=== PATIENT | female | born 1975 | race Caucasian/White ===

== ENCOUNTER 2017-08-23 10:37 | Emergency (ER) | payer BC ==
[2017-08-23] MEDS ORDERED: Acetaminophen 325 MG/10.15 ML UDCUP ONE (11:07)
[2017-08-23 11:22] LABS: Lactic Acid - Sepsis 1.5 mmol/L (0.5-2.2)
[2017-08-23 11:22] LABS: #Eosinphils 0.1 thou/uL (0.0-0.7); #Lymphocytes 1.6 thou/uL (1.20-3.40); #Monocytes 0.6 thou/uL (0.11-0.59); #Neutrophils 4.5 thou/uL (1.40-6.50); %Basophils 0.4 % (0.0-1.0); %Lymphocytes 23.5 % (21.0-51.0); %Monocytes 8.3 % (0.0-10.0); Hematocrit 41.9 % (36.0-47.0); Mean Platelet Volume 7.8 fL (7.4-10.4); Red Blood Cell (RBC) Count 4.83 mill/uL (4.20-5.40); White Blood Cell (WBC) Count 6.8 thou/uL (4.8-10.8)
[2017-08-23 11:27] LABS: ALT (SGPT) 51 U/L (8-55); AST (SGOT) 26 U/L (5-34); Alkaline Phosphatase 107 U/L (40-150); Anion Gap 16 mmol/L (10-20); BUN (Urea Nitrogen) 8 mg/dL (7.0-18.7); Bilirubin, Total 0.4 mg/dL (0.2-1.2); CK (CPK) 74 U/L (29-168); Calc. Creatinine Clearance 0 mL/min (70-130); Calcium 10.1 mg/dL (7.8-10.44); Carbon Dioxide 24 mmol/L (22-29); Chloride 105 mmol/L (98-107); Estimated GFR-MDRD 86; Globulin 3.7 g/dL (2.4-3.5); Protein, Total 8.1 g/dL (6.0-8.3)
[2017-08-23 11:31] LABS: Troponin I Less than 0.010 ng/mL (< 0.028)
[2017-08-23] MEDS ORDERED: Benzonatate 100 MG CAP ONE (11:47)
--- NOTE | 2017-08-23 11:58 | RAD ---
TWO VIEW CHEST: HISTORY: Congestion. COMPARISON: 12/02/13. FINDINGS: Lungs are well aerated and clear. Heart and mediastinum unremarkable. Transvenous AICD leads again noted. IMPRESSION: No acute lung process identified. POS: [facility]
[2017-08-23] MEDS ORDERED: Ketorolac Tromethamine 30 MG/ML VIAL ONE (13:09)
== END 2017-08-23 13:45 | disposition home or self-care (01) ==
LOC: ERS 10:37
DX: J01.90 Acute sinusitis, unspecified (principal); B96.89 Other specified bacterial agents as the cause of diseases classified elsewhere; I25.10 Atherosclerotic heart disease of native coronary artery without angina pectoris; Z85.43 Personal history of malignant neoplasm of ovary; Z86.73 Personal history of transient ischemic attack (TIA), and cerebral infarction without residual deficits
CPT/HCPCS: 36415; 71020; 80053; 82553; 83605; 84484; 85025; 87081; 87430; 96361; 96374; J1885

== ENCOUNTER 2017-09-04 22:48 | Emergency (ER) | payer BC ==
[2017-09-05] MEDS ORDERED: Ketorolac Tromethamine 30 MG/ML VIAL ONE (02:19)
--- NOTE | 2017-09-05 08:04 | RAD ---
TWO VIEWS CHEST: 09/05/2017 PROVIDED CLINICAL HISTORY: Cough. COMPARISON: 08/23/2017 FINDINGS: Cardiac and mediastinal silhouette are unchanged in appearance. No focal consolidation, pleural flui d, or pneumothorax apparent. IMPRESSION: No evidence for an acute cardiopulmonary process. POS: [facility]
== END 2017-09-05 02:30 | disposition home or self-care (01) ==
LOC: ERS 22:48
DX: R05 Cough (principal); R07.81 Pleurodynia; I25.10 Atherosclerotic heart disease of native coronary artery without angina pectoris; G40.909 Epilepsy, unspecified, not intractable, without status epilepticus; Z79.899 Other long term (current) drug therapy
CPT/HCPCS: 71020; 96372; J1885

== ENCOUNTER 2020-03-26 14:43 | Emergency (ER) | payer MEDICAID, SELFPAY ==
--- NOTE | 2020-03-26 15:31 | RAD ---
XR Elbow Rt 4 View STANDARD History: Elbow pain Comparison: None. Findings: Mild enthesopathic change along the common extensor and flexor tendons, greater on the late ral margin of the elbow. No acute fracture or malalignment. No significant joint effusion. Impression: Chronic medial and lateral epicondylitis.
[2020-03-26] MEDS ORDERED: Ketorolac Tromethamine 30 MG/ML VIAL ONE (16:20)
== END 2020-03-26 16:25 | disposition short-term general hospital (02) ==
LOC: ERS 14:43
DX: M77.11 Lateral epicondylitis, right elbow (principal); I25.10 Atherosclerotic heart disease of native coronary artery without angina pectoris; G40.909 Epilepsy, unspecified, not intractable, without status epilepticus; Z86.73 Personal history of transient ischemic attack (TIA), and cerebral infarction without residual deficits
CPT/HCPCS: 96372; J1885

== ENCOUNTER 2020-05-13 05:46 | Day surgery (SDC) | payer MEDICARE ==
[2020-05-12 11:03] VITALS: BMI 35.2
[2020-05-13] MEDS ORDERED: Fentanyl 100 MCG/2 ML VIAL ONE (06:49)
[2020-05-13] MEDS ORDERED: Ketamine 50 MG/ML (10ML VIAL) ONE (07:38)
[2020-05-13] MEDS ORDERED: Midazolam HCl 2 mg/2 ml Vial ONE (07:38)
[2020-05-13] MEDS ORDERED: PROPOFOL 200 MG/20 ML VIAL ONE (10:49)
--- NOTE | 2020-05-13 11:32 | OP ---
DATE OF PROCEDURE: 05/13/2020 PROCEDURES PERFORMED: 1. Esophagogastroduodenoscopy with biopsy. 2. Colonoscopy with biopsy and polypectomy. INDICATIONS FOR PROCEDURE: Epigastric/generalized abdominal pain, GERD, irregular bowel habits, diarrhea. DESCRIPTION OF PROCEDURE: After the risks and benefits of the procedures were explained to the patient including risks of bleeding, infection, perforation, reactions to anesthesia, aspiration, and/or pain, informed consent was obtained. The patient was then taken to the endoscopy suite where she was maneuvered into the left lateral decubitus position, followed by introduction of deep sedation via ketamine and anesthesia support. Once adequate sedation was achieved, the standard gastroscope was introduced into the mouth with intubation of the esophagus, stomach, and the proximal small intestines with the findings listed below. After completion of this portion of the procedure, all equipment was removed from the patient and the bed was rotated 180 degrees in anticipation of the colonoscopy. After performing a digital rectal exam, a standard colonoscope was then introduced into the rectum and advanced to the cecum with some difficulty due to tortuosity/redundancy of the colon, requiring manual abdominal pressure to facilitate passage of the scope. The quality of the prep was initially fair with retained solid stool seen throughout the colon, but converted to a good prep with irrigation and suctioning. The patient tolerated the procedure well with no immediate perioperative complications. On conclusion of the procedure, all equipment was removed from the patient and she was transferred to Day Stay/PACU in satisfactory condition. EGD FINDINGS: Esophagus: Normal-appearing mucosa was seen in the proximal and mid esophagus; however, at the gastroesophageal junction, 3 to 4 small erosions were seen extending proximally from the GE junction. These erosions extended less than 5 mm in size and were not confluent between folds of the esophagus. No bleeding was associated with these erosions as well. Otherwise, there was no evidence of ulcerations, mass lesions, or active/recent bleeding. Stomach: Normal-appearing mucosa was seen in the gastric cardia, fundus, body, greater curvature, and incisura; however, in the antrum, 4 to 5 small petechiae-appearing clots were seen, that with the irrigation of these clots did not show any significant underlying abnormalities. Otherwise, there was no evidence of erosions, ulcerations, mass lesions, or active/recent bleeding. Random gastric biopsies were then taken for evaluation of possible H pylori. Duodenum: Normal-appearing mucosa was seen in both the duodenal bulb and second portion of the duodenum. There was no evidence of erosions, ulcerations, mass lesions, or active/recent bleeding. Random biopsies were then taken from both the duodenal bulb and second portion of the duodenum for evaluation of possible celiac sprue. IMPRESSION: 1. LA grade A reflux-mediated erosive esophagitis. 2. Small petechiae-appearing clots without underlying abnormalities in the gastric antrum, consistent with nonsteroidal anti-inflammatory drugs gastritis. COLONOSCOPY FINDINGS: Digital rectal exam: Normal findings were seen on external examination with normal sphincter tone. Colon findings: A small to moderate amount of retained solid and liquid stool was seen throughout the entire colon and was initially characterized as a fair prep; however, with aggressive irrigation and suctioning, this was able to be converted to a good prep with adequate visualization of the colonic mucosa achieved. Of the mucosa seen, normal-appearing mucosa was seen in the cecum as well as at the appendiceal orifice and ileocecal valve. The terminal ileum was not able to be intubated due to tortuosity of the colon; however, normal-appearing mucosa was then seen in the ascending colon, transverse colon, and sigmoid colons. Random colon biopsies were taken throughout the entire colon for evaluation of possible microscopic colitis. Three polyps, measuring 3 to 4 mm in size, were seen in the rectum and completely removed with cold snare polypectomy. However, only one of these polyps was able to be retrieved. No abnormalities were seen on rectal retroflexion. IMPRESSION: 1. Three 3- to 4-mm rectal polyps status post cold snare polypectomy, although they were completely resected. Only one polyp was able to be retrieved. 2. Otherwise normal colonoscopy. RECOMMENDATIONS: 1. Would follow up on the biopsy results with repeat EGD and colonoscopy determined by pathology report. However, given that 2 polyps were un-retrieved during the colonoscopy, I would recommend a repeat colonoscopy in 5 years (would assume that the other 2 polyps were adenomatous in nature). 2. Would continue current diet. 3. Continue current medications, but we will consider decreasing NSAID use. 4. Would start the patient on omeprazole 40 mg daily 30 to 45 minutes before dinner for acid reflux. 5. Would recommend a higher fiber/FODMAP diet given irregular bowel habits. 6. We will follow up in the [facility] in 3 weeks for further management and evaluation. Job ID: [id number]
== END 2020-05-13 10:28 | disposition home or self-care (01) ==
LOC: SDC 05:46
PROVIDERS: ATTEND Internal Medicine
PROC: 0DB98ZX Excision of Duodenum, Via Natural or Artificial Opening Endoscopic, Diagnostic (ICD-10-PCS; principal; 2020-05-13)
PROC: 0DB68ZX Excision of Stomach, Via Natural or Artificial Opening Endoscopic, Diagnostic (ICD-10-PCS; 2020-05-13)
PROC: 0DBE8ZX Excision of Large Intestine, Via Natural or Artificial Opening Endoscopic, Diagnostic (ICD-10-PCS; 2020-05-13)
PROC: 0DBP8ZX Excision of Rectum, Via Natural or Artificial Opening Endoscopic, Diagnostic (ICD-10-PCS; 2020-05-13)
DX: K62.1 Rectal polyp (principal); K22.10 Ulcer of esophagus without bleeding; K21.0 Gastro-esophageal reflux disease with esophagitis; F41.9 Anxiety disorder, unspecified; I42.9 Cardiomyopathy, unspecified; G89.29 Other chronic pain; M54.9 Dorsalgia, unspecified; E66.9 Obesity, unspecified; Z68.35 Body mass index [BMI] 35.0-35.9, adult; Z87.891 Personal history of nicotine dependence; Z79.82 Long term (current) use of aspirin; Z79.899 Other long term (current) drug therapy; Z88.0 Allergy status to penicillin; Z88.8 Allergy status to other drugs, medicaments and biological substances; Z95.810 Presence of automatic (implantable) cardiac defibrillator
CPT/HCPCS: 88305; 88312; 93005; 93010; J2250; J2704; J3010

== ENCOUNTER 2020-10-15 19:34 | Emergency (ER) | payer MEDICARE ==
[~2020-10-15 19:34] MED LIST: Iopamidol-370 76% 500 ML 1 ML ONE
--- NOTE | 2020-10-15 20:03 | RAD ---
PORTABLE CHEST ONE VIEW: 10/15/20 at 7:50 p.m. HISTORY: Shortness of breath COMPARISON: 09/05/17 The left sided pacemaker device remains in place. The heart size is normal. No lobar consolidation, p neumothoraces, or pleural effusions are seen. There is linear scarring in the right lower lung. IMPRESSION: No acute process. POS: [facility]
--- NOTE | 2020-10-15 21:05 | RAD ---
Radiograph right ribs 3 views: HISTORY: 45-year-old female with sudden onset of right rib pain FINDINGS: No displaced right rib fracture is identified. No right-sided pneumothorax. Right lateral costophreni c angle is sharp. IMPRESSION: Negative
[2020-10-15] MEDS ORDERED: Ondansetron PF 4 MG/2 ML Vial ONE (21:31)
[2020-10-15] MEDS ORDERED: Morphine 4 MG/ML VIAL ONE (21:31)
[2020-10-15 22:12] LABS: #Basophils 0.1 thou/uL (0.0-0.2); #Eosinphils 0.3 thou/uL (0.0-0.7); #Lymphocytes 3.3 thou/uL (1.20-3.40); #Monocytes 0.7 thou/uL (0.11-0.59); #Neutrophils 5.1 thou/uL (1.40-6.50); %Eosinophils 2.8 % (0.0-10.0); %Monocytes 7.3 % (0.0-10.0); Hemoglobin 13.3 g/dL (12.0-16.0); Mean Corpuscular HGB CONC 32.9 g/dL (32.0-36.0); Mean Corpuscular Hemoglobin 27.3 pg (27.0-31.0); Mean Platelet Volume 7.8 fL (7.4-10.4); Platelet Count 343 thou/uL (130-400); RBC Distribution Width 13.5 % (11.5-14.5); Red Blood Cell (RBC) Count 4.88 mill/uL (4.20-5.40); White Blood Cell (WBC) Count 9.4 thou/uL (4.8-10.8)
[2020-10-15 22:13] LABS: Bilirubin Negative (Negative); Blood, Urine Negative (Negative); Clarity Clear (Clear); Glucose, Urine (Dipstick) Normal (Negative); Ketone, Urine 10 mg/dL (Negative); Leukocyte Negative Leu/uL (Negative); Nitrite Negative (Negative); Protein, Urine (Dipstick) Negative (Neg-Trace); Specific Gravity, Urine 1.027 (1.002-1.036); Urobilinogen Normal mg/dL (Less than 2)
[2020-10-15] MEDS ORDERED: Aspirin Chewable 81 MG TAB ONE (22:18)
--- NOTE | 2020-10-15 22:32 | CT ---
CT ANGIOGRAM THORAX WITH CONTRAST: (CTA pulmonary angiogram) DATE: 10/15/2020 HISTORY: 45-year-old female with sudden onset right chest pain TECHNIQUE: IV injection of iodinated contrast. Scan acquisition timing attempted to coincide with iodinated contrast bolus reaching maximal density in pulmonary arteries. 3-D MIP reconstructions. FINDINGS: No evidence of pulmonary thromboembolism. No thoracic aortic aneurysm, dissection, or rupture. No pleural effusion, pneumothorax, mediastinal lymphadenopathy, hilar lymphadenopathy, or tracheobron chial stenosis. No cardiomegaly or pericardial effusion. Thoracic vertebral body heights are maintained. Multilevel mostly mild discogenic degenerative changes in the thoracic spine. No grossly displaced rib fracture identified. No consolidation. Nonspecific mild groundglass densities in bilateral lower lobes, especially at bases, right greater t gonzalez left. These could represent dependent changes. Subsegmental atelectasis in anterior segment right upper lobe and left lateral base, mild. AICD with left-sided generator. IMPRESSION: 1. No pulmonary thromboembolism 2. Implantable cardioverter-defibrillator.
[2020-10-15 22:35] LABS: ALT (SGPT) 31 U/L (8-55); AST (SGOT) 17 U/L (5-34); Albumin 4.3 g/dL (3.5-5.0); Alkaline Phosphatase 117 U/L (40-110); Anion Gap 16 mmol/L (10-20); BUN (Urea Nitrogen) 18 mg/dL (7.0-18.7); Bilirubin, Total 0.2 mg/dL (0.2-1.2); Calc. Creatinine Clearance 0 mL/min (70-130); Calcium 9.7 mg/dL (7.8-10.44); Carbon Dioxide 24 mmol/L (22-29); Chloride 105 mmol/L (98-107); Globulin 3.7 g/dL (2.4-3.5); Glucose 101 mg/dL (70-105); Potassium 4.2 mmol/L (3.5-5.1); Sodium 141 mmol/L (136-145)
[2020-10-15] MEDS ORDERED: Ketorolac Tromethamine 30 MG/ML VIAL ONE (23:34)
== END 2020-10-16 00:38 | disposition home or self-care (01) ==
LOC: ERS 19:34
DX: R07.81 Pleurodynia (principal); Z86.73 Personal history of transient ischemic attack (TIA), and cerebral infarction without residual deficits; Z79.82 Long term (current) use of aspirin; Z79.899 Other long term (current) drug therapy
CPT/HCPCS: 71045; 71275; 80053; 81003; 84484; 85025; 93005; 96374; 96375; J1885; J2270; J2405; Q9967